=== PATIENT | male | born 1950 | race Caucasian/White ===

== ENCOUNTER 2022-03-28 05:39 | Observation (INO) ==
--- NOTE | 2022-03-09 10:54 | PAT Medication Instructions ---
Medication Instructions Date of Service March 09, 2022 Home Medications ascorbic acid (vitamin C) 1,000 mg tablet (Vitamin C) 1 g PO QAM calcium 500 mg tablet 500 mg PO QAM furosemide 20 mg tablet 20 mg PO QAM magnesium 1 tab PO QAM omega-3 fatty acids 1,000 mg PO QAM potassium 1 dose PO QAM STOP taking 2 weeks before surgery (or as soon as possible if surgery is within 2 weeks) omega-3 fatty acids 1,000 mg PO QAM DO NOT take the morning of surgery ascorbic acid (vitamin C) 1,000 mg tablet (Vitamin C) 1 g PO QAM calcium 500 mg tablet 500 mg PO QAM furosemide 20 mg tablet 20 mg PO QAM magnesium 1 tab PO QAM potassium 1 dose PO QAM Other Notes If you have any questions please call us at [phone] or [phone] or [phone] or [phone]
--- NOTE | 2022-03-13 14:14 | Anesthesiology Consultation ---
Date of Service March 13, 2022 Assessment & Plan (1) Encounter for pre-operative examination: - COVID screening: Per assessment on 03/13: No known COVID-19 positive contacts or current COVID-19 related symptoms. Travel screen negative. At surgeon discretion if preop Covid testing being done. - Cardiology office visit (02/23/22): "Mild ascending aortic enlargement, stable.. Chronic right hemidiaphragm elevation.. Hypertension with diastolic dysfunction, edema managed with low-dose diuretic.. Preoperative evaluation prior to planned bilateral total knee replacement.. Functional capacity remains relatively high despite degenerative joint disease.. No indications for further cardiac testing. No contraindications to surgery as planned.. He has increased risk for fluid retention perioperatively and atrial arrhythmias" - Patient acceptable risk for surgery pending surgeon-ordered PCP preop evaluation (Nina, appt 03/15). Chart Review Chart Review: Patient seen in Pre Admission Testing History Surgery Operation Date: 03/28/22 09:25 Proposed Procedures p Bilateral Total Knee Arthroplasty - Bart De Leon, Height/Weight Height: 5 ft 5 in Weight: 106.1 kg Allergies Allergy/AdvReac Type Severity Reaction Status Date / Time No Known Allergies Allergy Verified 03/07/22 11:06 Medications Home Medications Medication Instructions Recorded Confirmed Last Taken ascorbic acid (vitamin C) 1,000 mg 1 g PO QAM 03/07/22 03/07/22 Unknown tablet (Vitamin C) calcium 500 mg tablet 500 mg PO QAM 03/07/22 03/07/22 Unknown furosemide 20 mg tablet 20 mg PO QAM 03/07/22 03/07/22 Unknown magnesium 1 tab PO QAM 03/07/22 03/07/22 Unknown omega-3 fatty acids 1,000 mg PO QAM 03/07/22 03/07/22 Unknown potassium 1 dose PO QAM 03/07/22 03/07/22 Unknown Past Medical History Medical History Diastolic dysfunction Hearing deficit BL ODONNELL HTN (hypertension) Lower extremity edema Managed with low-dose diuretic Obesity Osteoarthritis Exercise / Class Metabolic Activity II 4-5 Yardwork/Stairs/Walk up hill (one FS (no CP, no SOB)) Past Family History Family History Other Heart disease No family history of adverse response to anesthesia Past Surgical History Surgical History History of arthroscopy of right knee History of colonoscopy History of hand surgery left index finger surgery Past Anesthesia History No Hx of Anesthesia Complications and No Family Hx of Anesthesia Complications History of PONV No Hx of PONV and No Hx of Motion Sickness Social History Smoking Status: Never smoker Do You Dip or Chew Tobacco: No Hx Alcohol Use: No Hx Substance Use: No substance use type: does not use Review of Systems Patient denies chest pain, shortness of breath, dyspnea on exertion, fever, chills, cough, wheezing, palpitations. Physical Exam Vital Signs VITALS BP 120/75 P 78 TEMP 98.4 SP02 96%RA RESP 16 PHYSICAL Full cervical extension range of motion. Full TMJ range of motion. TMD 4 finger breaths Mallampati Score 3 Dentition: missing molar, + upper front left repair (metal stud + cap) Lungs: clear throughout to auscultation Cardiac: regular rate and rhythm, no murmurs noted Spine: normal Carotid arteries: negative bruit Extremities: no edema Lab Results Anesthesia Preop Results Results Anesthesia Widget: WBC 6.19 K/ul (4.8-10.8) 03/13/22 Hgb 13.3 g/dl (14.0-18.0) L 03/13/22 Hct 39.1 % (40.1-51.0) L 03/13/22 Plt 286 K/uL (130-400) 03/13/22 Na 138 mmol/L (136-145) 03/13/22 K 3.7 mmol/L (3.5-5.1) 03/13/22 Cl 105 mmol/L (98-107) 03/13/22 CO2 28 mmol/L (21-32) 03/13/22 BUN 20 mg/dl (6-23) 03/13/22 Creat 0.77 mg/dl (0.6-1.4) 03/13/22 Glucose Level 118 mg/dl (70-99(Fasting)) H 03/13/22 PT 11.5 Seconds (9.0-12.0) 03/13/22 PTT 29.9 Seconds (21.0-31.0) 03/13/22 INR 1.1 (0.9-1.1) 03/13/22 HA1c 6.0 % (4.5-5.6) H 03/13/22 Urine Color Yellow 03/13/22 Urine Appearance Clear (Clear) 03/13/22 Urine pH 6.5 (4.5-7.5) 03/13/22 Urine Specific [place] 1.007 (1.000-1.030) 03/13/22 Urine Protein Negative (Negative) 03/13/22 Urine Glucose (UA) Negative (Negative) 03/13/22 Urine Ketones Negative (Negative) 03/13/22 Urine Blood Negative (Negative) 03/13/22 Urine Nitrite Negative (Negative) 03/13/22 Urine Bilirubin Negative (Negative) 03/13/22 Urine Urobilinogen Negative (Negative) 03/13/22 Urine Leukocyte Esterase Negative (Negative) 03/13/22 Blood Type A Negative 03/13/22 Antibody Screen NEGATIVE 03/13/22 Testing Electrocardiogram Date: 02/23/22 Normal sinus rhythm with sinus arrhythmia at 63 bpm. LAD. Chest X-Ray Date: 03/13/22 FINDINGS: There is elevation the right hemidiaphragm. The lungs are clear. The heart is normal in size. No pleural fusions. No pneumothorax. IMPRESSION: Elevated right hemidiaphragm. Otherwise, no acute process within the chest. Echocardiogram Date: 06/15/21 LVEF 55 to 59%. No regional motion abnormality. Mildly increased concentric LV wall thickness. Grade 1 diastolic dysfunction. Mild AV sclerosis/TR. Mildly enlarged proximal ascending thoracic aorta. No significant change compared to 03/14/2020 per report. Stress Test Date: 03/11/18 Type: exercise Stress echo/EKG is negative for inducible ischemia. Exercise capacity is average. Rest echo with LVEF 60-64%, grade 1 diastolic dysfunction, mild LAE, mild AR/MR, mild to moderate TR, mildly enlarged proximal ascending thoracic aorta. 8.5 METS. 100% MPHR. COVID-19 Risk Screen Screening Information COVID-19 Screen Date: 03/13/22 Exposure 21 Days Family/Household +COVID Last 21 Days: No Exposure 10 Days Any COVID Exposure Last 10 Days: No Symptoms Last 10 Days Experienced COVID Sx Last 10 Days: No + COVID 0-90 Days COVID + in Last 0-90 Days: No
--- NOTE | 2022-03-13 14:38 | History & Physical Report ---
Date of Service March 13, 2022 date of surgery: 03/28/22 Procedure: Bilateral Total Knee Arthroplasty Surgeon: Bart De Leon Assessment & Plan (1) Degenerative arthritis of knee, bilateral: Plan: Presents for preoperative evaluation prior to his bilateral total knee replacements. He has failed conservative measures and would like to proceed with bilateral knee replacements. Plan will be discharged home with home health physical therapy after overnight stay. Will place on Xarelto x1 month postop for DVT prophylaxis. He otherwise has no other questions or concerns The risks and benefits have been discussed including, but not limited to, risk of infection, nerve injury, stiffness, loss of motion, failure to improve, etc. Reasonable outcomes and options of treatment were discussed. An explanation of appropriate alternatives to the procedure that may be advantageous were discussed and their risks and benefits, as well as the risks and benefits of not proceeding with treatment. I offered to answer any additional inquiries concerning the treatment involved. All the patient's questions were answered. The patient is agreeable, understanding of the treatment plan and alternatives, and wishes to proceed with the treatment plan. History of Present Illness Chief Complaint: bilateral knee pain Primary Care Provider: NO PCP Mr Nuñez is a 72 year old male who complains of bilateral knee pain, presents for pre-op evaluation prior to bilateral total knee replacements by Dr De Leon at [facility]. He complains of pain, decreased range of motion, instability and stiffness in his knees. Currently the patient states that the symptoms are moderate-severe and is described as aching, sharp and throbbing. His symptoms are aggravated by ascending stairs, daily activities, first steps while awake walking. Prior NSAIDs include IBU and Aleve. He has been treated with previous cortisone injections in the past without much relief. he has also had prior right knee arthroscopy by Dr Merlos in 2014. Allergies Allergy/AdvReac Type Severity Reaction Status Date / Time No Known Allergies Allergy Verified 03/07/22 11:06 Home Medications Medication Instructions Recorded Confirmed Type ascorbic acid (vitamin C) 1,000 mg 1 g PO QAM 03/07/22 03/07/22 History tablet (Vitamin C) calcium 500 mg tablet 500 mg PO QAM 03/07/22 03/07/22 History furosemide 20 mg tablet 20 mg PO QAM 03/07/22 03/07/22 History magnesium 1 tab PO QAM 03/07/22 03/07/22 History omega-3 fatty acids 1,000 mg PO QAM 03/07/22 03/07/22 History potassium 1 dose PO QAM 03/07/22 03/07/22 History Past Med/Surg History Medical History Diastolic dysfunction Hearing deficit BL ODONNELL HTN (hypertension) Lower extremity edema Managed with low-dose diuretic Obesity Osteoarthritis Surgical History History of arthroscopy of right knee History of colonoscopy History of hand surgery left index finger surgery Family History Other Heart disease No family history of adverse response to anesthesia Social History Smoking Status: Never smoker Second Hand Exposure: No; Hx Alcohol Use: No Hx Substance Use: No Preferred Language: Armenian Communication Ability: Effective Health And Wellness Advisor Required: No Beliefs That Will Affect Care: None Current Living Situation: Spouse Feels Safe at Home: Yes Assistive Devices: Glasses and Hearing Aid - Bilateral Review of Systems Review of Systems: All systems reviewed & are unremarkable except as noted in HPI & below Constitutional: no fever, no chills and no sweats Respiratory: no cough and no dyspnea Cardiovascular: no chest pain, no dyspnea and no orthopnea Gastrointestinal: no abdominal pain, no nausea and no vomiting Musculoskeletal: as per Subjective / HPI Physical Exam Physical Exam: HT: 5ft 5in WT: 106.1kg Constitutional: WD/WN, vitals as above no acute distress Respiratory: normal respiratory effort, lungs clear to auscultation no respiratory distress, no labored breathing and does not use accessory muscles Cardiovascular: RRR, no murmur, no edema Gastrointestinal (Abdomen): normal bowel sounds, soft, nontender, no hepatosplenomegaly Musculoskeletal: Bilateral knee Physical exam Overall patient has varus alignment bilaterally, there is no atrophy or ecchymosis noted, +1 suprapatellar effusion in both knees, positive tenderness to both medial and lateral joint lines right knee, more medial sided tenderness to the left knee. negative patellar apprehension, positive crepitation noted to both knees with active ROM. bilateral knees stable to valgus and varus stress, wale negative, posterior drawer negative. Range of motion right knee 0/3/110, left knee 0/3/115. lower extremities are neurovascularly intact, calf soft and non tender, DP pulse +2 bilaterally. Results & Data Results & Data ([facility]) Diagnostic Findings Bilateral Knee X-ray: bilateral knee series confirm advanced degenerative changes bilateral knees, greatest medial compartments and patellofemoral joints, showing joint space narrowing, osteophyte formation and subchondral sclerosis. no acute bony pathology noted.
[2022-03-28] MEDS ORDERED: TRANEXAMIC ACID 1,000 MG **IV Intra-op IV SCH (06:00)
[2022-03-28] MEDS ORDERED: FAMOTIDINE 20 MG TAB PO SCH (06:00)
[2022-03-28] MEDS ORDERED: CeleBREX 200 MG CAP PO SCH (06:00)
[2022-03-28] MEDS ORDERED: ROPIVACAINE 0.5% HCL/PF 150 MG, BUPIVACAINE 0.75% MPF 20 ML, EPINEPHrine 30MG/30ML (OR ... INSTIL SCH (06:00)
[2022-03-28] MEDS ORDERED: ACETAMINOPHEN 500 MG TAB PO SCH (06:00)
[2022-03-28] MEDS ORDERED: GABAPENTIN 300 MG CAP PO SCH (06:00)
[2022-03-28] MEDS ORDERED: ceFAZolin 2000MG 2,000 MG/15 ML SYR IV SCH (06:00)
[2022-03-28] MEDS ORDERED: dexAMETHasone 4 MG TAB PO SCH (06:00)
[2022-03-28] MEDS ORDERED: METOCLOPRAMIDE HCL 10 MG TABLET PO SCH (06:00)
[2022-03-28] MEDS ORDERED: LR 500ML BOLUS, THEN 15ML/HR IV SCH (06:00)
[2022-03-28] MEDS ORDERED: TRANEXAMIC ACID 1,000 MG **IV Pre-op IV SCH (06:00)
[2022-03-28] MEDS ORDERED: ROPIVACAINE 0.5% 5 MG/ML 30 ML VIAL ONE (06:30)
[2022-03-28] MEDS ORDERED: BUPIVACAINE 0.5 % 5 MG/1 ML PF 10ML VIAL ONE (06:30)
--- NOTE | 2022-03-28 07:08 | History & Physical Bridge Note ---
Date of Service March 28, 2022 History & Physical Bridge Note I have examined the patient, reviewed the History & Physical and in the interval since the performance of the History & Physical I have noted the following changes of clinical significance: no changes noted
[2022-03-28] MEDS ORDERED: ONDANSETRON INJ 2 MG/ML 2 ML VIAL ONE (07:22)
[2022-03-28] MEDS ORDERED: GLYCOPYRROLATE 0.2 MG/ML VIAL ONE (07:22)
[2022-03-28] MEDS ORDERED: ORTHO JOINT ANESTHETIC ONE (07:22)
[2022-03-28] MEDS ORDERED: KETAMINE 50 MG/5 ML SYRINGE ONE (07:22)
[2022-03-28] MEDS ORDERED: LIDOCAINE 2% 20 MG/ML 5 ML SYR IV ONE (07:22)
[2022-03-28] MEDS ORDERED: MIDAZOLAM HCL 1 MG/ML 2ML VIAL ONE (07:22)
[2022-03-28] MEDS ORDERED: PROPOFOL IV EMULSION 10 MG/ML 20 ML VIAL IV ONE ×3 (07:22→10:56)
[2022-03-28] MEDS ORDERED: ONDANSETRON INJ 2 MG/ML 2 ML VIAL IV PRN ×2 (08:07→14:14)
[2022-03-28] MEDS ORDERED: ATROPINE SULFATE 0.1 MG/ML 10ML SYR IV PRN (08:07)
[2022-03-28] MEDS ORDERED: HYDROmorphone INJ 1 MG/ML SYRINGE IV PRN (08:07)
[2022-03-28] MEDS ORDERED: KETOROLAC 30 MG/ML VIAL IV PRN (08:07)
[2022-03-28] MEDS ORDERED: ePHEDrine sulfate 50 MG/ML AMP IV PRN (08:07)
[2022-03-28] MEDS ORDERED: PHENYLEPHRINE 100MCG/ML 5ML SYR ONE (08:39)
[2022-03-28] MEDS ORDERED: PHENYLEPHRINE HCL 10 MG/ML VIAL ONE (09:07)
[2022-03-28] MEDS ORDERED: ePHEDrine sulfate 50 MG/ML AMP ONE (09:07)
[2022-03-28] MEDS ORDERED: SODIUM CHLORIDE 0.9% INJ 10 ML VIAL ONE (09:08)
[2022-03-28] MEDS ORDERED: ESMOLOL HCL INJ 10 MG/ML 10ML VIAL IV ONE (10:31)
--- NOTE | 2022-03-28 10:39 | Operative Report ---
Post Operative Report Pre & Post Diagnosis Operation Date: 03/28/22 08:10 Pre-Op Diagnosis: Bilateral Knee Osteoarthritis Post-Op Diagnosis: Bilateral Knee Osteoarthritis I identified the patient and participated in the time-out.: Yes Procedure Operation Date: 03/28/22 08:10 Actual Procedures p Bilateral Total Knee Arthroplasty(Bilateral) utilizing femur size 7 left tibia size 5 left polynine left patella 32 oval right size 6 femur 5 tibia 11 polythirty 2 oval patella- Bart De Leon DO Surgeon Bart De Leon DO Cash Applications Manager Bertrand SILVESTRE Estimated Blood Loss 5 Findings Consistent with Post-Op Diagnosis Patient presents with severe end-stage DJD varus alignment 8 degree flexion contractures bilaterally with eburnated [id number] marginal osteophytes subchondral sclerosis Specimens Bone and cartilage Drains Medium bore Hemovac Anesthesia Type MAC Spinal Regional Complications none Disposition Accompanied Patient To Recovery: No Disposition: Recovery Room Indications Patient presents with severe end-stage tricompartmental degenerative joint disease no response to conservative management the above intraoperative findings are noted patient failed attempted corticosteroid injection viscosupplementation relative rest activity modification exercise and the presents for bilateral total knee arthroplasty Description of Procedure After proper prepping and draping of the bilateral lower extremities, an anterior midline incision was made over the region of the extensor extensor mechanism of the left knee. After meticulous hemostasis was obtained and maintained in subcutaneous tissues a medial parapatellar incision was made The patella was subluxed lateralward the medial lateral gutter were cleaned from any hypertrophic synovitis and scar tissue of the distal femoral block was placed and the distal femoral osteotomy cut was made subsequently the chamfers anterior and posterior osteotomy cuts were made utilizing the 4-in-1 block the tibia was subsequently subluxed anteriorward medial and ateral meniscal remnants were excised in their entirety remnants of the anterior and posterior cruciate ligaments were excised in their entirety excellent exposure of the proximal tibia was obtained the tibial osteotomy guide was placed on the proximal tibial osteotomy cut was made once again the knee was irrigated with copious amounts of sterile saline solution the patella was subsequently everted lateralward thickened scar tissue around the patella was removed the patella was subsequently cut utilizing a freehand technique and was drilled prepared for final preparation and placement of patella socially flexion-extension gaps were checked and the equal and symmetric trials were placed to the appropriate femoral and tibial trials with poly-spacer being placed for equal flexion and extension gaps and full range of motion including extension to 0 and flexion to 140 the trial components after having been taken to recovery range of motion was subsequently removed meticulous hemostasis was obtained and maintained subsequently a knee block injection of joint cocktail including ropivacaine 0.5% 150 mg. Bupivacaine 0.5% epinephrine 1-200,030 mL's toradol 30 mg dexamethasone 4 mg ketamine 10 mg clonidine 100 micrograms normal saline solution 30 mg was infiltrated into the soft tissues of the posterior knee medial lateral gutters and periosteal synovium special attention was paid to protect neurovascular structures at all times subsequently trial components having been removed the knee was irrigated with sterile saline solution. debris was removed the proximal tibia was subsequently prepared and was made ready for the placement of the tibial component tibial component was also cemented and tamped into position the femoral component was subsequently placed and cemented in the position the patellar component was subsequently cemented in position because hemostasis once again obtained and maintained wound having been thoroughly irrigated with debridement and debridement lavage was performed as well as a medial parapatellar incision closed with #1 Vicryl in interrupted fashion subcutaneous was closed with #2 Vicryl skin was closed with skin clips Next, an anterior midline incision was made over the region of the extensor extensor mechanism of the right knee. After meticulous hemostasis was obtained and maintained in subcutaneous tissues a medial parapatellar incision was made The patella was subluxed lateralward the medial lateral gutter were cleaned from any hypertrophic synovitis and scar tissue of the distal femoral block was placed and the distal femoral osteotomy cut was made subsequently the chamfers anterior and posterior osteotomy cuts were made utilizing the 4-in-1 block the tibia was subsequently subluxed anteriorward medial and ateral meniscal remnants were excised in their entirety remnants of the anterior and posterior cruciate ligaments were excised in their entirety excellent exposure of the proximal tibia was obtained the tibial osteotomy guide was placed on the proximal tibial osteotomy cut was made once again the knee was irrigated with copious amounts of sterile saline solution the patella was subsequently everted lateralward thickened scar tissue around the patella was removed the patella was subseq uently cut utilizing a freehand technique and was drilled prepared for final preparation and placement of patella socially flexion-extension gaps were checked and the equal and symmetric trials were placed to the appropriate femoral and tibial trials with poly-spacer being placed for equal flexion and extension gaps and full range of motion including extension to 0 and flexion to 140 the trial components after having been taken to recovery range of motion was subsequently removed meticulous hemostasis was obtained and maintained subsequently a knee block injection of joint cocktail including ropivacaine 0.5% 150 mg. Bupivacaine 0.5% epinephrine 1-200,030 mL's toradol 30 mg dexamethasone 4 mg ketamine 10 mg clonidine 100 micrograms normal saline solution 30 mg was infiltrated into the soft tissues of the posterior knee medial lateral gutters and periosteal synovium special attention was paid to protect neurovascular structures at all times subsequently trial components having been removed the knee was irrigated with sterile saline solution. debris was removed the proximal tibia was subsequently prepared and was made ready for the placement of the tibial component tibial component was also cemented and tamped into position the femoral component was subsequently placed and cemented in the position the patellar component was subsequently cemented in position because hemostasis once again obtained and maintained wound having been thoroughly irrigated with debridement and debridement lavage was performed as well as a medial parapatellar incision closed with #1 Vicryl in interrupted fashion subcutaneous was closed with #2 Vicryl skin was closed with skin clips.. PA-C was necessary for prepping and drapping as well as wound closure of deep fascia Sub cutaneous tissue and skin and was necessary for the case. A sterile compressive dressings were placed, patient was taken to recovery in stable condition of report dictated by Moises I attest to the content of the Intraoperative Record and any orders documented therein. Any exceptions are noted below.Due to the complex nature of the procedure, the entire surgery was performed with the operational assistance of Bertrand SILVESTRE. The fire assistant, under direct supervision, was involved in the actual performance of all aspects of the surgical procedure including hemostasis, tissue retraction and incision, instrument management, patient positioning, and wound closure. I attest to the content of the Intraoperative Record and any orders documented therein. Any exceptions are noted below.
--- NOTE | 2022-03-28 11:55 | XRay Report ---
TWO VIEWS LEFT KNEE CLINICAL HISTORY: Postoperative examination. FINDINGS: AP and crosstable lateral portable views of the left knee are obtained. A left knee arthrop lasty is in near anatomic alignment. There has been undersurface remodeling of the patella. No acute fracture is seen. There are expected postoperative changes around the knee including skin clips, a culver rgical drain, soft tissue edema, and subcutaneous gas. IMPRESSION: Expected postoperative changes status post left knee arthroplasty. No acute fracture is s een. ACT 112: Negative or not required by law. Electronically signed by: Otis Villafuerte M.D. 03/28/2022 11:53 AM
--- NOTE | 2022-03-28 11:58 | Anesthesiology Progress Note ---
Date of Service March 28, 2022 Anesthesia Post Procedure Vital Signs Vital Signs: Temp Pulse Pulse Resp BP Pulse Ox O2 Del Method 03/28/22 11:45 87 17 144/95 H 94 Room Air 03/28/22 11:35 86 19 130/88 94 Room Air 03/28/22 11:25 90 21 137/80 95 Oxymask 03/28/22 11:17 36.5 C 95 H 19 146/78 H 96 Oxymask 03/28/22 06:12 36.8 C 78 20 162/87 H 97 Room Air O2 Flow Rate 03/28/22 11:45 03/28/22 11:35 03/28/22 11:25 5 03/28/22 11:17 5 03/28/22 06:12 Pain Intensity Left Knee: Pain Intensity: 8 Transfer of Care Handoff Completed per policy Notes Mental Status: alert / awake / arousable Patient Amnestic to Procedure: Yes Nausea / Vomiting: adequately controlled Pain: adequately controlled Airway Patency, RR, SpO2: stable & adequate BP & HR: stable & adequate Hydration State: stable & adequate Neuraxial Anesthesia: was administered and sensory block is resolving Anesthetic Complications: no major complications apparent
--- NOTE | 2022-03-28 12:04 | XRay Report ---
XR knee RT 1 or 2V routine CLINICAL HISTORY: Surgical Post Op TECHNIQUE: 2 views of the right knee were obtained. Comparison: None available at the time of this dictation. FINDINGS: Patient is status post total knee arthroplasty with expected postsurgical changes including soft tiss ue swelling and subcutaneous emphysema. No periarticular lucency or hardware fracture is seen. IMPRESSION: Expected postoperative appearance status post placement of total knee arthroplasty. ACT 112: Negative or not required by law. Electronically signed by: Maxim Hsieh M.D. 03/28/2022 12:03 PM
[2022-03-28] MEDS ORDERED: NALOXONE HCL 0.4 MG/1 ML VIAL/CARP IV PRN (14:14)
[2022-03-28] MEDS ORDERED: diphenhydrAMINE 50 MG/ML VIAL IV PRN (14:14)
[2022-03-28] MEDS ORDERED: HYDROmorphone INJ 0.5 MG/0.5 ML SYR IV PRN (14:14)
[2022-03-28] MEDS ORDERED: bisacodyL 10 MG SUPP PR PRN (14:14)
[2022-03-28] MEDS ORDERED: MAGNESIUM HYDROXIDE SUSP 30 ML UDC PO PRN (14:14)
[2022-03-28] MEDS: SODIUM CHLORIDE 0.9% 1000ML 1,000 ML IV SCH (15:17)
[2022-03-28] MEDS: ACETAMINOPHEN 500 MG TAB PO SCH ×2 (15:21→21:51)
[2022-03-28] MEDS: ceFAZolin 2000MG 2,000 MG/15 ML SYR IV SCH (17:55)
[2022-03-28] MEDS: oxyCODONE HCL IR 5 MG TAB (IMMEDIATE RELEASE) PO PRN ×2 (17:59→22:00)
[2022-03-28] MEDS: SENNA 8.6 MG TAB PO SCH (21:52)
[2022-03-28] MEDS: DOCUSATE SODIUM 100 MG CAP PO SCH (21:53)
[2022-03-29] MEDS: ceFAZolin 2000MG 2,000 MG/15 ML SYR IV SCH (00:53)
[2022-03-29] MEDS ORDERED: COUGH DROP (SUGAR FREE) LOZ 24 LOZ/1 BOX BUCCAL ONE (02:16)
[2022-03-29] MEDS: SODIUM CHLORIDE 0.9% 1000ML 1,000 ML IV SCH (02:34)
[2022-03-29] MEDS: ACETAMINOPHEN 500 MG TAB PO SCH ×3 (05:35→22:38)
--- NOTE | 2022-03-29 06:58 | Orthopedic Progress Note ---
Date of Service March 29, 2022 Assessment & Plan (1) History of total bilateral knee replacement: Plan: POD #1 s/p bilateral TKAs pt/ot dvt proph with NIKKY/SCD/Xarelto plan for d/c home with HHPT Admission and Anticipated Discharge Date Admission Date: March 28, 2022 Supervising Physician Co-Signing Physician Notes Patient seen and examined. Agree with KONRAD Barba's note as above. Nursing reported that he had a hypotensive episode when getting up with physical therapy earlier this morning, with some nausea and vomiting. He then rested for few hours, and is feeling much better now. He is currently standing and walking with physical therapy without any feelings of dizziness, lightheadedness, or nausea. Blood pressure is normal while standing. He has good mobility in the hallway. Pain in both knees is well controlled. He therefore should be safe for discharge home today after his therapy session is complete. Subjective POD #1 s/p Bilateral TKA Review of Systems Constitutional: no fever, no chills and no sweats Respiratory: no cough and no dyspnea Cardiovascular: no chest pain and no dyspnea Gastrointestinal: no abdominal pain, no nausea and no vomiting Physical Exam Physical Exam: Vital Signs Temp 36.7 C 03/29/22 02:34 Pulse 80 03/29/22 02:34 Resp 20 03/29/22 02:34 BP 135/80 03/29/22 02:34 Pulse Ox 97 03/29/22 02:34 O2 Del Method 03/29/22 02:34 O2 Flow Rate 5 03/28/22 11:25 Intake & Output 03/28/22 03/28/22 03/29/22 06:59 18:59 06:59 Intake Total 2050 / 3900 1850 / 3900 Output Total 1480 / 2555 1075 / 2555 Balance 570 / 1345 775 / 1345 Weight 104.462 kg 104.462 kg Intake: IV 100 / 1100 1000 / 1100 Lactated Ringe r's 1,000 ml @ 15 0 / 0 mls/hr IV .Q24 H KAYY Rx#: [id number] Sodium Chlorid e 0.9% 1000ML 1, 1000 / 1000 000 ml @ 100 m ls/hr IV .Q10H KAYY Rx#:[id number] Tranexamic Aci d / 0.7% NaCl 1, 100 / 100 000 mg In 100 ml @ 600 mls/hr IV TODAY@0600 [facility] Rx#:[id number] IV Perioperative 1300 / 1300 Oral 650 / 1500 850 / 1500 Output: Urine 1250 / 1900 650 / 1900 Estimated Blood Loss Drain Output 220 / 645 425 / 645 Left Knee #2 140 / 440 300 / 440 Right Knee #1 80 / 205 125 / 205 Other: Weight Measureme nt Method Standing Scale Musculoskeletal: Bilateral Lower extremities: NVDI, calf SNT, negative oscar sign. DP palpable, able to wiggle toes/ankle movement without difficulty. dressing clean dry and intact. Results & Data ([facility]) Vital Signs (Past 12 Hours) Vital Signs Temp Pulse Pulse Resp BP BP Pulse Ox 03/29/22 02:34 36.7 C 80 20 135/80 97 03/29/22 00:11 37 C 74 18 118/68 97 03/28/22 19:44 36.5 C 78 20 133/85 96 O2 Del Method 03/29/22 02:34 Room Air 03/29/22 00:11 Room Air 03/28/22 19:44 Room Air Diagnostic Findings Laboratory Results SARS-CoV-2, RNA, NAAT NEGATIVE (NEGATIVE) 03/28/22 Unknown Blood Type A Negative 03/28/22 06:15 Antibody Screen NEGATIVE 03/28/22 06:15 Impressions Knee X-Ray 03/28/22 11:29 XR knee RT 1 or 2V routine CLINICAL HISTORY: Surgical Post Op TECHNIQUE: 2 views of the right knee were obtained. Comparison: None available at the time of this dictation. FINDINGS: Patient is status post total knee arthroplasty with expected postsurgical changes including soft tissue swelling and subcutaneous emphysema. No periarticular lucency or hardware fracture is seen. IMPRESSION: Expected postoperative appearance status post placement of total knee arthroplasty. ACT 112: Negative or not required by law. Electronically signed by: Maxim Hsieh M.D. 03/28/2022 12:03 PM
[2022-03-29 07:50] LABS: Hematocrit (blood only) 34.6 % (40.1-51.0); Hemoglobin 11.7 g/dl (14.0-18.0); Mean Corpuscular Hemoglobin 30.6 pg (25.0-34.0); Mean Corpuscular Hgb Conc 33.8 g/dL (32.0-36.0); Mean Corpuscular Volume 90.6 fL (80.0-100.0); Mean Platelet Volume 9.7 fL (9.4-12.4); Platelet Count 258 K/uL (130-400); RDW Coefficient of Variation 14.6 % (11.5-14.5); RDW Standard Deviation 48.7 fL (36.4-46.3); Red Blood Count 3.82 M/uL (4.63-6.08); White Blood Count 13.69 K/ul (4.8-10.8)
[2022-03-29 08:18] LABS: BUN Creatinine Ratio 25.9 (10-20); Creatinine Clr Calc Pharmacy 93.1 ml/min; Est GFR (African American) 103.6 ml/min; Est GFR (Non-African American) 89.4 ml/min; Potassium 4.5 mmol/L (3.5-5.1)
[2022-03-29] MEDS: ASCORBIC ACID 500 MG TAB PO SCH (08:54)
[2022-03-29] MEDS: DOCUSATE SODIUM 100 MG CAP PO SCH ×2 (08:54→20:58)
[2022-03-29] MEDS: MULTIVITAMIN TAB PO SCH (08:55)
[2022-03-29] MEDS: CALCIUM CARBONATE 1250MG TAB PO SCH (08:55)
[2022-03-29] MEDS ORDERED: RIVAROXABAN 10 MG TABLET PO SCH (09:00)
[2022-03-29] MEDS: FUROSEMIDE 20 MG TAB PO SCH (09:34)
[2022-03-29] MEDS: oxyCODONE HCL IR 5 MG TAB (IMMEDIATE RELEASE) PO PRN ×2 (09:36→14:58)
[2022-03-29] MEDS: KETOROLAC TROMETHAMINE 15 MG/ML VIAL IV SCH ×2 (17:33→22:38)
[2022-03-29] MEDS: SENNA 8.6 MG TAB PO SCH (20:58)
[2022-03-29] MEDS ORDERED: APIXABAN 2.5 MG TAB PO SCH (21:00)
[2022-03-30] MEDS: ACETAMINOPHEN 500 MG TAB PO SCH ×3 (05:09→21:58)
[2022-03-30] MEDS: KETOROLAC TROMETHAMINE 15 MG/ML VIAL IV SCH ×4 (05:10→22:00)
--- NOTE | 2022-03-30 07:33 | Orthopedic Progress Note ---
Date of Service March 30, 2022 Assessment & Plan (1) History of total bilateral knee replacement: Plan: POD #2 s/p bilateral TKAs pt/ot - will see how pt progresses with PT today. dvt proph with NIKKY/SCD/Eliquis Toradol added last night for additional pain control. Recheck CBC/BMP Dressing change / hemovacs out today plan for d/c home with HHPT- Discussed possibility of [facility] depending on how pt progressed wth PT. Admission and Anticipated Discharge Date Admission Date: March 28, 2022 Subjective POD 2 Pt sitting up in bed awake, alert. Pain controlled presently. Denies CP, LH, SOB. Pt with LH and LBP when trying to ambulate yesterday. Feeling well this AM. Physical Exam Physical Exam: Dressings C/D/I. Calves soft, NT. NV intact. Toes mobile. HV drains present; minimal drainage. Results & Data ([facility]) Vital Signs (Past 12 Hours) Vital Signs Temp Pulse Resp BP Pulse Ox O2 Del Method 03/30/22 07:06 36.9 C 78 18 146/82 H 96 Room Air 03/29/22 21:30 37.3 C 85 18 135/74 96 Room Air Laboratory Results Laboratory Results WBC 10.90 K/ul (4.8-10.8) H 03/30/22 07:23 RBC 3.52 M/uL (4.63-6.08) L 03/30/22 07:23 Hgb 10.9 g/dl (14.0-18.0) L 03/30/22 07:23 Hct 31.5 % (40.1-51.0) L 03/30/22 07:23 MCV 89.5 fL (80.0-100.0) 03/30/22 07:23 MCH 31.0 pg (25.0-34.0) 03/30/22 07:23 MCHC 34.6 g/dL (32.0-36.0) 03/30/22 07:23 RDW Std Deviation 49.5 fL (36.4-46.3) H 03/30/22 07:23 RDW Coeff of Tristin 15.0 % (11.5-14.5) H 03/30/22 07:23 Plt Count 234 K/uL (130-400) 03/30/22 07:23 MPV 9.7 fL (9.4-12.4) 03/30/22 07:23 Sodium 132 mmol/L (136-145) L 03/30/22 07:23 Potassium 4.2 mmol/L (3.5-5.1) 03/30/22 07:23 Chloride 102 mmol/L (98-107) 03/30/22 07:23 Carbon Dioxide 27 mmol/L (21-32) 03/30/22 07:23 Anion Gap 3 (3-11) 03/30/22 07:23 BUN 24 mg/dl (6-23) H 03/30/22 07:23 Creatinine 0.82 mg/dl (0.6-1.4) 03/30/22 07:23 Est Cr Clr Drug Dosing 92.0 ml/min 03/30/22 07:23 Est GFR ( Amer) 103.1 ml/min 03/30/22 07:23 Est GFR (Non-Af Amer) 89.0 ml/min 03/30/22 07:23 BUN/Creatinine Ratio 29.3 (10-20) H 03/30/22 07:23 Glucose 103 mg/dl (70-99(Fasting)) H 03/30/22 07:23 Calcium 8.1 mg/dl (8.5-10.1) L 03/30/22 07:23 SARS-CoV-2, RNA, NAAT NEGATIVE (NEGATIVE) 03/28/22 Unknown Blood Type A Negative 03/28/22 06:15 Antibody Screen NEGATIVE 03/28/22 06:15
[2022-03-30 07:38] LABS: Hematocrit (blood only) 31.5 % (40.1-51.0); Hemoglobin 10.9 g/dl (14.0-18.0); Mean Corpuscular Hgb Conc 34.6 g/dL (32.0-36.0); Mean Corpuscular Volume 89.5 fL (80.0-100.0); Mean Platelet Volume 9.7 fL (9.4-12.4); Platelet Count 234 K/uL (130-400); RDW Standard Deviation 49.5 fL (36.4-46.3); Red Blood Count 3.52 M/uL (4.63-6.08)
[2022-03-30 08:10] LABS: BUN Creatinine Ratio 29.3 (10-20); Calcium 8.1 mg/dl (8.5-10.1); Est GFR (African American) 103.1 ml/min; Potassium 4.2 mmol/L (3.5-5.1)
[2022-03-30] MEDS: FUROSEMIDE 20 MG TAB PO SCH (08:50)
[2022-03-30] MEDS: ASCORBIC ACID 500 MG TAB PO SCH (08:51)
[2022-03-30] MEDS: MULTIVITAMIN TAB PO SCH (08:51)
[2022-03-30] MEDS: DOCUSATE SODIUM 100 MG CAP PO SCH ×2 (08:51→20:17)
[2022-03-30] MEDS: CALCIUM CARBONATE 1250MG TAB PO SCH (08:51)
[2022-03-30] MEDS: APIXABAN 5 MG TABLET PO SCH ×2 (08:54→20:17)
[2022-03-30] MEDS ORDERED: APIXABAN 2.5 MG TAB PO SCH (09:00)
[2022-03-30] MEDS: SENNA 8.6 MG TAB PO SCH (20:17)
[2022-03-31] MEDS: KETOROLAC TROMETHAMINE 15 MG/ML VIAL IV SCH ×2 (05:50→12:39)
[2022-03-31] MEDS: ACETAMINOPHEN 500 MG TAB PO SCH (05:50)
[2022-03-31] MEDS: APIXABAN 5 MG TABLET PO SCH (08:18)
[2022-03-31] MEDS: DOCUSATE SODIUM 100 MG CAP PO SCH (08:18)
[2022-03-31] MEDS: CALCIUM CARBONATE 1250MG TAB PO SCH (08:18)
[2022-03-31] MEDS: ASCORBIC ACID 500 MG TAB PO SCH (08:18)
[2022-03-31] MEDS: FUROSEMIDE 20 MG TAB PO SCH (08:18)
[2022-03-31] MEDS: MULTIVITAMIN TAB PO SCH (08:19)
--- NOTE | 2022-03-31 10:49 | Orthopedic Progress Note ---
Date of Service March 31, 2022 Assessment & Plan (1) History of total bilateral knee replacement: Plan: POD #3 s/p bilateral TKAs pt/ot - Did well with PT this AM. dvt proph with NIKKY/SCD/Eliquis Toradol added last night for additional pain control. plan for d/c home with HHPT today if orthostatic symptoms resolve. Admission and Anticipated Discharge Date Admission Date: March 28, 2022 Supervising Physician Co-Signing Physician Notes Patient seen and examined. Agree with KONRAD Pal's note as above. He seems to be doing much better today. He made it through his morning therapy session and to the bathroom on his own without any further hypotensive episodes. He feels much better, and feels ready to go home. Plan for discharge home today. Subjective POD 3 Pt sitting up in bed awake, alert. Pain controlled presently. Denies CP, LH, SOB. Doing well this morning. Was working with PT during the exam and his blood pressure was improved. Getting ready to ambulate in the lopez to evaluate knee pain as well as orthostatic symptoms. Physical Exam Constitutional: WD/WN, vitals as above no acute distress Musculoskeletal: Knee: + surgical incision (Bilateral knees: Leslee dressing C/D/I and functioning); no deformity, no skin erythema and no ecchymosis Skin: no rashes, warm and dry Trauma: no evidence of skin trauma Neurologic: normal touch/pain/proprioception Psychiatric: A+Ox3, euthymic affect Speech: normal rate/rhythm/volume of speech Results & Data ([facility]) Vital Signs (Past 12 Hours) Vital Signs Temp Pulse Resp BP Pulse Ox O2 Del Method 03/31/22 07:05 37.2 C 87 18 133/71 96 Room Air
--- NOTE | 2022-04-03 11:56 | Discharge Summary ---
Date of Service April 03, 2022 Admission HPI Per Admitting Provider Mr Nuñez is a 72 year old male who complains of bilateral knee pain, presents for pre-op evaluation prior to bilateral total knee replacements by Dr De Leon at [facility]. He complains of pain, decreased range of motion, instability and stiffness in his knees. Currently the patient states that the symptoms are moderate-severe and is described as aching, sharp and throbbing. His symptoms are aggravated by ascending stairs, daily activities, first steps while awake walking. Prior NSAIDs include IBU and Aleve. He has been treated with previous cortisone injections in the past without much relief. he has also had prior right knee arthroscopy by Dr Merlos in 2015. Admission Exam Per Admitting Provider Physical Exam: HT: 5ft 5in WT: 106.1kg Constitutional: WD/WN, vitals as above no acute distress Respiratory: normal respiratory effort, lungs clear to auscultation no respiratory distress, no labored breathing and does not use accessory muscles Cardiovascular: RRR, no murmur, no edema Gastrointestinal (Abdomen): normal bowel sounds, soft, nontender, no hepatosplenomegaly Musculoskeletal: Bilateral knee Physical exam Overall patient has varus alignment bilaterally, there is no atrophy or ecchymosis noted, +1 suprapatellar effusion in both knees, positive tenderness to both medial and lateral joint lines right knee, more medial sided tenderness to the left knee. negative patellar apprehension, positive crepitation noted to both knees with active ROM. bilateral knees stable to valgus and varus stress, wale negative, posterior drawer negative. Range of motion right knee 0/3/110, left knee 0/3/115. lower extremities are neurovascularly intact, calf soft and non tender, DP pulse +2 bilaterally. Principal Diagnosis Bilateral knee osteoarthritis Discharge Data Allergies Allergy/AdvReac Type Severity Reaction Status Date / Time No Known Allergies Allergy Verified 03/28/22 06:06 Procedures Performed Operation Date: 03/28/22 08:10 Actual Procedures p Bilateral Total Knee Arthroplasty(Bilateral) - Bart De Leon DO Ordered Studies 03/28/22 05:00 US - OR guided needle placemen Routine Hospital Course (1) History of total bilateral knee replacement: Patient was admitted on the above-noted date and had the above-noted surgery performed which tolerated well. On his first postoperative day the patient was without complaints. Denies shortness of breath, chest pain, lightheadedness. Vital signs were stable and he was afebrile. Bilateral dressings were clean, dry, and intact. Neurovascular is intact. Calves are soft nontender. Hemoglobin was 11.7 and dropped down to 10.9 on 03/30/2022. Patient was started on PT and OT protocols and continued on DVT prophylaxis and pain management. On his second postoperative day, he was sitting up in bed awake and alert. Pain was controlled at the present time. It was noted that patient had some lightheadedness and low blood pressure when trying to ambulate the previous day. He was feeling well that morning. Dressings remained clean, dry, and intact. Calves were soft nontender. Neurovascular was intact. Toes are mobile. Patient was continued on his PT OT protocols. Toradol has been added for some additional pain control. It was found that whenever he was being a little over aggressive with his physical therapy, the pain became fairly high rated and this caused him to drop his blood pressure and become lightheaded. By his third postoperative day, his pain was controlled and he was doing well. He was not having any blood pressure issues during his ambulation. No changes with his surgical dressings. Patient was overall improved and ambulating without having any incidence of lightheadedness and was felt he can be discharged to home. Total Time Total Time Spent Total Time Spent (In Minutes): 10 Discharge Plan Discharge Items Patient Disposition: Home - Home Health Services Reason For Visit: Bilateral Knee Osteoarthritis Discharge Diagnosis: Bilateral Knee Osteoarthritis Activity: Per Instructions section Weightbearing: Full weightbearing Weightbearing Comment: Weightbearing as tolerated with walker Non-emergency contact: Surgeon Call non-emergency contact if: you have any medication questions, your pain is not controlled, your temperature is above 101.5, your wound has increased redness and your wound has increased drainage Follow-up/Referrals: Bart De Leon DO [Surgeon] - (Follow up with Dr. De Leon in 2 weeks from the day of your surgery for your first post operative visit) PCP,NO [Physician] - Diet: Regular Addtl Attending Provider Instructions: ACTIVITY RECOMMENDATIONS: SELF CARE INSTRUCTIONS AFTER TOTAL KNEE REPLACEMENT A. You may need to continue a physical therapy program after discharge from the hospital. There are several options available to you. Your doctor will assist you in selecting the best one for you. 1. An out-patient facility 2 to 3 times a week for therapy or home therapy. 2. Continue working on all exercises taught to you in the hospital. Your goals should be to increase bending of your knee to 90 degrees and beyond and to fully straighten your knee. B. You may progress at your own pace from walking with a walker or crutches to a cane; then to no assistive devices. C. Make walking a part of your daily routine. Be up as much as comfortable with rest periods throughout the day. Rest with leg elevation is very important. Use the ice wrap frequently for the first 3-4 weeks. D. There are no restrictions on activities. You may ride in a car, shop, participate in motorized squad lieutenant and all social activities. E. Wear the long elastic stockings (NIKKY hose) 20 hours a day for 2 weeks after surgery. They can be removed several times a day for laundering and for a bath. F. You may shower, no tub baths until cleared by your doctor. SPECIAL CARE INSTRUCTIONS: VERY IMPORTANT TO READ AND REVIEW A. There are a few signs you need to watch for after you are home. Call [facility] if you notice any of the followin. Increased severe knee pain. Some pain is expected especially when you exercise. 2. Increased swelling in your leg or knee; pain or swelling of the calf muscle in either lower leg. 3. Any fluid drainage from the incision. 4. Shortness of breath or chest pain. B. Please call [facility] at if you have any concerns or questions about your operation or recovery. The doctor or his nurse will return your call promptly. C. You must take antibiotics before dental work, bladder, bowel or other surgery. Your doctor will provide you with a permanent care to carry describing this precaution. IMPORTANT: * REMEMBER TO TAKE APIXABAN 10MG, DAILY FOR 4 WEEKS UNLESS OTHERWISE DIRECTED. THIS IS YOUR BLOOD THINNER. * CALL IF INCREASED PAIN, REDNESS, DRAINAGE OR FEVER GREATER THAT 101. * WEAR NIKKY HOSE 20 HOURS PER DAY FOR 2 WEEKS. * Prevena- This is a large suction dressing covering your incision. This will help pull any excess drainage from the wound and allow your incision to heal properly. You may shower with this if you can keep the unit outside of the shower. If any bleeding or leakage is noted please call your doctor's office. This will remain on your incision for 7 days and then should be removed. This can be done yourself or by the home nursing staff if applicable. The entire unit is disposable once removed. Once removed, keep incision clean and dry. If redness or drainage is noted, please call your surgeon. . FOLLOW UP VISIT: If appointment is not already scheduled: Please call [facility] to make a follow-up appointment for 2 weeks after your surgery at . Pending Studies at Discharge: No Stand-Alone Forms: My [facility], Smoking Cessation Medications and DC Order Prescriptions: New acetaminophen [Tylenol Extra Strength] 500 mg Tablet 1,000 mg PO Q8 21 Days Qty: 126 0RF oxycodone 5 mg Tablet 5 - 10 mg PO Q6H PRN (Reason: pain) Qty: 30 0RF Rx Instructions: ongoing therapy, supervising Dr Jones De Leon. Max 6 tabs in 24 hours docusate sodium 100 mg Capsule 100 mg PO BID 10 Days Qty: 20 0RF cefadroxil 500 mg capsule 500 mg PO BID 14 Days Qty: 28 0RF Eliquis 5 mg tablet 5 mg PO Q12H 28 Days Qty: 56 0RF Continued furosemide 20 mg Tablet 20 mg PO QAM potassium 1 dose PO QAM ascorbic acid (vitamin C) [Vitamin C] 1,000 mg Tablet 1 g PO QAM calcium 500 mg Tablet 500 mg PO QAM magnesium Tablet 1 tab PO QAM Discontinued Fish Oil Capsule 1,000 mg PO QAM Excedrin Extra Strength 250-250-65 mg Tablet 1 tab PO Q6H PRN (Reason: Pain) Discharge Orders: Discharge Order (Routine); Ordered 03/31/22 Ordered By: Mik Wolf/Other Patient Handouts: Total Knee Replacement Admission Data Admit Date/Time: 03/28/22 11:29 Attending Provider: Bart De Leon Admit Provider: Bart De Leon Primary Care Provider: Kaila Johnson Other Providers: [facility],Home Health Other Interventions: Discharge Summary Assessment (RN) Last Done: 03/31/22 12:06
== END 2022-03-31 13:21 | disposition home health service (06) ==
LOC: 3E 05:39 → ASU 05:39
DX: Z79.899 Other long term (current) drug therapy; M17.0 Bilateral primary osteoarthritis of knee; Z68.38 Body mass index [BMI] 38.0-38.9, adult; E66.9 Obesity, unspecified